=== PATIENT | female | born 1940 | race Caucasian/White ===

== ENCOUNTER → 2019-03-26 | Outpatient (CLI) | payer OTHER ==
[~2019-03-26] MED LIST: REGADENOSON 0.4 MG/5 ML DISP.SYRIN. IV ONE
--- NOTE | 2019-03-27 07:44 | PCVCIMAG ---
APPROVED REPORT Imaging Protocol: Rest Tc-99m/Stress Tc-99m 1 day Study performed: 03/26/2019 14:33:03 Indication: Pre-Operative CV evaluation, Fatigue, Dyspnea Patient Location: Out-Patient Stress Nurse: Wendi Ledesma RN, Kym Campuzano RN MS Tech:Anna TRISTON LouiseMT Ht: 5 ft 3 in Wt: 203 lbs BSA: 1.95 m2 HR: 66 bpm BP: 167/79 mmHg BMI: 35.9 Rhythm: Paced Medical History Medical History: Atrial Fibrillation Medications: Eliquis, ASA, Atenolol, Flecainide, Gabapentin, Tramadol Allergies: PCN, Lidocaine Cardiac Risk Factors: Age Pretest Chest Pain Characteristics: No chest pain Exercise History: Sedentary Meds Held (24 hrs): Atenolol Resting Data Rest SPECT myocardial perfusion imaging was performed in supine position 45 minutes following the intravenous injection of 10.8 mCi of Tc-99m Sestamibi. Time of rest injection: 1345 Date: 03/26/2019 Administration Route: IV Administration Site: Right Arm Pharmacologic Stress Pharmacologic stress test was performed by injecting Regadenoson 0.4 mg IV push over 10-15 seconds immediately followed by the intravenous injection of 32.6 mCi of Tc-99m Sestamibi. Time of stress injection: 1500 Date: 03/26/2019 Administration Route: IV Administration Site: Right Arm Gated Stress SPECT was performed 45 minutes after stress injection. The images were gated to evaluate regional wall motion and calculate left ventricular ejection fraction. Stress Test Details Stress Test: Pharmacologic stress testing performed using 0.4 mg of regadenoson per 5 mL given IV over 10 seconds. Reason for pharmacologic stress test: physical limitation. HRMax Heart Rate (APMHR): 144 bpm Resting HR: 66 bpmTarget HR (85% APMHR): 122 bpm Max HR Achieved: 81 bpm % of APMHR: 56 Recovery HR: 72 bpm BP Resting BP: 167/79 mmHg Max BP: 152/76 mmHg Recovery BP: 157/71 mmHg ECG Resting ECG: Paced Rhythm, LBBB Stress ECG: Paced Rhythm, LBBB ST Change: Nondiagnostic V-pacing or LBBB Arrhythmia: PVC's Recovery ECG: Paced Recovery ST Change: Nondiagnostic V-pacing or LBBB Recovery Arrhythmia: VPC Clinical Reason for Termination: Completed protocol Stress Symptoms: Abdominal discomfort, Leg Fatigue Exercise duration: 0 min 55 sec Symptoms resolved during recovery. Stress ECG Conclusion ECG: Non-ischemic Non-diagnostic exercise stress due pacing, LBBB Study Quality Study: Good Study Data Post stress, the left ventricular ejection was 44%.. SSS: 4 SRS: 1 SDS: 4 TID = 0.82. Perfusion Small sized area of mild reversible ischemia involving the mid lateral left ventricle versus attenuation artifact. Please correlate clinically. Wall Motion Mildly decreased left ventricular systolic function. Nuclear Conclusion Small sized area of mild reversible ischemia involving the mid lateral left ventricle versus attenuation artifact. Please correlate clinically. Post stress, the left ventricular ejection was 44%. No prior study available for comparison. Interpreted by: Iftikhar Larson MD Electronically Approved: 03/26/2019 18:03:23 <Conclusion> ECG: Non-ischemic Non-diagnostic exercise stress due pacing, LBBB
== END | disposition home or self-care (01) ==
LOC: PCVCCLINIC 13:19 → EDSTATUS 15:28 → PCVCIMAG 15:29
PROVIDERS: ATTEND Internal Medicine Cardiovascular Disease
DX: Z01.810 Encounter for preprocedural cardiovascular examination (principal); R53.83 Other fatigue; R06.09 Other forms of dyspnea; I48.0 Paroxysmal atrial fibrillation
CPT/HCPCS: 78452; 93017; A9500; J2785